=== PATIENT | male | born 1990 | race Caucasian/White ===

== ENCOUNTER 2018-06-12 14:18 | Emergency (ER) | payer OTHER ==
--- NOTE | 2018-06-12 14:57 | EDPHY ---
H & P Stated Complaint: BACK PAIN WHILE SQUATTING AT WORK TODAY, HEARD A POP Time Seen by Provider: 06/12/18 14:57 - Personal History Current Tetanus Diphtheria and Acellular Pertussis (TDAP): Yes - Medical/Surgical History Hx Asthma: No Hx Chronic Respiratory Disease: No Hx Diabetes: No Hx Cardiac Disease: No Hx Renal Disease: No Hx Cirrhosis: No Hx Alcoholism: No Hx HIV/AIDS: No Hx Splenectomy or Spleen Trauma: No Other PMH: denies - Social History Smoking Status: Never smoked Constitutional: Initial Vital Signs Temperature (C) 36.9 C 06/12/18 14:28 Heart Rate 86 06/12/18 14:28 Respiratory Rate 16 06/12/18 14:28 Blood Pressure 170/118 H 06/12/18 14:28 O2 Sat (%) 96 06/12/18 14:28 O2 Delivery Mode Room Air Allergies/Adverse Reactions: No Known Allergies Allergy (Unverified 06/12/18 14:30) Home Medications: Medication Instructions Recorded methylPREDNISolone [Medrol Dose 1 each PO AD #1 ea 06/12/18 Hans] oxyCODONE IR [Oxycodone Ir (*)] 5 - 10 mg PO Q6 PRN #20 tab 06/12/18 Medical Decision Making - Diagnostics Imaging: Discussed imaging studies w/ call center manager Radiologist, I viewed and interpreted images myself ED Course/Re-evaluation: CHIEF COMPLAINT: Back pain HISTORY OF PRESENT ILLNESS: The patient is a 27 y/o male complaining of back pain onset today. The patient was lifting a box off a Pallet when he felt a popping sensation in his low back and subsequently had pain radiating down his right leg. He denies history of any back problems. Denies urinary or bowel complaints. Cut me he is having minor pain radiation toward the left side of his back. However his main complaint really is the pain right leg radiculopathy. His position of comfort is to stand up right completely still. No fever, chills, headache, sore throat, cough, chest pain, chest palpitations, shortness of breath, abdominal pain, nausea, vomiting, urinary or bowel complaints, numbness, paresthesias. REVIEW OF SYSTEMS: A comprehensive 10 system review of systems is otherwise negative aside from elements mentioned in the history of present illness and medical decision making. PHYSICAL EXAM: HR, BP, O2 Sat, RR. Temp noted General Appearance: Alert, well hydrated, appropriate, and non-toxic appearing. Head: Atraumatic without scalp tenderness or obvious injury Eyes: Pupils equal, round, reactive to light and accommodation, EOMI, no trauma , no injection. Ears: Clear bilaterally, no perforation, normal landmarks Nose: Atraumatic, no rhinorrhea, clear. Throat: There is no erythema or exudates, no lesions, normal tonsils, mucus membranes moist. Neck: Supple, 2+ carotid upstroke, nontender, no lymphadenopathy. Respiratory: No retractions, no distress, no wheezes, and no accessory muscle use. Lungs are clear to auscultation bilaterally. Cardiovascular: Regular rate and rhythm, no murmurs, rubs, or gallops. Bilateral carotid, radial, dorsalis pedis, and posterior tibial pulses intact. Good capillary refill all extremities. Gastrointestinal: Abdomen is soft, nontender, non-distended, no masses, no rebound, no guarding, no peritoneal signs. Musculoskeletal: Normal active ROM of all extremities, atraumatic. Back: Lumbar spine tenderness with pain with any ROM. Neurological: Alert, appropriate, and interactive. The patient has normal DTRs and non-focal cranial nerves, motor, sensory, and cerebellar exam. Skin: No rashes, good turgor, no nodules on palpation. Past medical history: Denies Past surgical history: Denies Family history: Denies Social history: Lives in [place], single, does not abuse drugs or alcohol. DIAGNOSTICS/PROCEDURES/CRITICAL CARE TIME: Lumbar spine MRI: L4-5 disc protrusion with mild central canal stenosis. Normal right-sided foramen. DIFFERENTIAL DIAGNOSIS: The differential diagnosis for the patient's back pain included but was not limited to musculo-skeletal pain, epidural abscess, herniated disk, spinal fracture, and intra-abdominal causes including urinary system. MEDICAL DECISION MAKING: The patient is a 27 y/o male presenting with back pain onset today after lifting a box off a Pallet. The patient felt a popping sensation in his low back and subsequently had pain radiating down his right leg. On exam he has lower lumbar spine tenderness to palpation with worsening pain with any ROM. Lumbar spine MRI ordered; 2 tab Percocet administered. 1635: I spoke with Dr. Griffin, radiologist, regarding this patient's lumbar spine MRI. The patient has a L4-5 disc protrusion with mild central canal stenosis. Normal right-sided foramen. 1640: Reassessed patient and discussed imaging findings. I have prescribed him a Medrol Dosepak and OxyIR for his symptoms. I have also advised him to follow up with a neurosurgeon. Return precautions provided; patient is comfortable with this plan. - Data Points Medications Given: Discontinued Medications Oxycodone/Acetaminophen (Percocet 5/325) 2 tab PO EDNOW ONE Stop: 06/12/18 15:02 Last Admin: 06/12/18 15:02 Dose: 2 tab Departure - Departure Disposition: Home, Routine, Self-Care Clinical Impression: L4-L5 disc bulge Back pain Qualifiers: Back pain location: low back pain Chronicity: acute Back pain laterality: midline Sciatica presence: with sciatica Sciatica laterality: sciatica of right side Qualified Code(s): M54.41 - Lumbago with sciatica, right side Condition: Good Instructions: Lumbar Disc Herniation (ED), Low Back Strain (ED), Back Pain (ED) Additional Instructions: 1. Take OxyIR. 2. Take the Medrol Dosepak as prescribed. 3. Followup with a guest specialist within one week. 4. Return to the emergency department for severe pain, fever, numbness, difficulty walking, change in location or nature of pain or other concerns. Referrals: Nehemias Vieira MD [Medical Doctor] - As per Instructions DOMINGO FIERRO NP [Other] - As per Instructions Stand Alone Forms: Work Limited Duty Prescriptions: methylPREDNISolone [Medrol Dose Hans] 1 each PO AD #1 ea oxyCODONE IR [Oxycodone Ir (*)] 5 - 10 mg PO Q6 PRN #20 tab PRN Reason: Pain, Severe Report Scribed for: Melchor Alexandre Report Scribed by: Yady Tam Date of Report: 06/12/18 Time of Report: 15:00
[2018-06-12] MEDS ORDERED: OXYCODONE/APAP 5/325 TAB PO ONE (15:01)
[2018-06-12] MEDS ORDERED: OXYCODONE/APAP 5/325 TAB ONE (15:01)
[2018-06-12 16:48] VITALS: BP 156/82
== END 2018-06-12 16:47 | disposition home or self-care (01) ==
DX: M54.41 Lumbago with sciatica, right side (principal); X50.0XXA Overexertion from strenuous movement or load, initial encounter; Y99.0 Civilian activity done for income or pay